=== PATIENT | female | born 1985 | race Hispanic/Latino ===

== ENCOUNTER 2023-04-24 09:19 | Emergency (ER) | payer BC ==
[2023-04-24] VITALS (7 sets, daily range): BP systolic 110–131; BP diastolic 62–72
[~2023-04-24] VITALS: Ht 162.6 cm; Wt 98.0 kg
[~2023-04-24 09:19] MED LIST: CIPROFLOXACN500 MG PO; IUD
[2023-04-24 10:53] LABS: URINE BILIRUBIN - DIPSTICK NEGATIVE (NEGATIVE); URINE BLOOD DIPSTICK LARGE (NEGATIVE); URINE GLUCOSE - DIPSTICK NEGATIVE (NEGATIVE); URINE KETONE NEGATIVE (NEGATIVE); URINE LEUK ESTERASE SMALL (Negative); URINE NITRITE - DIPSTICK NEGATIVE (Negative); URINE PH 6.5 (4.5-8.0); URINE PROTEIN - DIPSTICK 100 mg/dL (NEG-TRACE); URINE SPECIFIC GRAVITY 1.015; URINE UROBILINOGEN - DIPSTICK 0.2 E.U./dL (0.2)
[2023-04-24 10:54] LABS: URINE CLARITY BLOODY; URINE COLOR RED; URINE RBC TNTC RBC/hpf (0-5); URINE WBC 0-2 WBC/hpf (0-5)
== END 2023-04-24 12:50 | disposition home or self-care (01) | DRG 607 ==
LOC: ED 09:19
PROVIDERS: Family Medicine
DX: L50.0 Allergic urticaria (principal); T50.8X5A Adverse effect of diagnostic agents, initial encounter; Y92.238 Other place in hospital as the place of occurrence of the external cause